=== PATIENT | male | born 1995 | race Caucasian/White ===

== ENCOUNTER 2024-05-27 15:48 | Emergency (ER) | payer SELFPAY ==
[~2024-05-27] VITALS: Ht 180.3 cm; Wt 63.5 kg
[~2024-05-27 15:48] MED LIST: ARIP5TAB12 PO; DIPH25CA83 PO; LORA1TAB PO; OMEP40CA21 PO; POLY17PO10 PO; TRIA16.5 NS
[2024-05-27 16:00] VITALS: BP 142/80; PULSE 109; RESP 18; O2SAT 95
[2024-05-27 16:21] VITALS: TEMP 98.1
== END 2024-05-27 16:22 | disposition home or self-care (01) ==
LOC: ER 15:49
DX: Z00.8 Encounter for other general examination (principal); R42 Dizziness and giddiness; F41.9 Anxiety disorder, unspecified
CPT/HCPCS: 99281

== ENCOUNTER 2024-08-15 09:36 | Emergency (ER) | payer MEDICAID ==
[~2024-08-15] VITALS: Ht 180.3 cm; Wt 62.8 kg
[2024-08-15 09:50] VITALS: BP 125/76; PULSE 67; RESP 18; O2SAT 98
[2024-08-15] MEDS ORDERED: MUPI22OI30 TOP (10:48)
[2024-08-15] MEDS ORDERED: CEPH-585 PO (10:48)
--- NOTE | 2024-08-15 10:48 | Physician Documentation ---
History of Present Illness ~ Chief Complaint: Abscess Stated Complaint: INGROWN HAIR Time Seen by MD: 10:21 Primary Medical Doctor: yulisa GALLEGOS 29-year-old male presents to the ED with a complaint of one month of having abscess on the right side of his penis. States that he has had this before in his armpit. He had tried to squeeze the area and caused increased pain and swelling. Denies having any drainage denies fevers or nausea vomiting. Day of Onset: Aug 15, 2024 Tetanus Within 5 Years: No Medication Reconciliation Allergies: Coded Allergies: No Known Allergies (Unverified , 08/15/24) Scheduled Aripiprazole* (Abilify*), 1 TAB PO DAILY, (Reported) Cephalexin*Monohydrate* (Keflex*), 1 CAP PO QID Diphenhydramine Hcl (Benadryl), 1 CAP PO Q8H Mupirocin* (Bactroban*), 1 APPLIC TOP Q8H Omeprazole (Prilosec), 40 MG PO DAILY Triamcinolone Acetonide (Nasacort Aq), 16.5 GM NS BID Scheduled PRN Aripiprazole* (Abilify*), 1 TAB PO Q6H PRN for for anxiety/agitation, (Reported) Lorazepam* (Ativan*), 2 MG PO Q6H PRN for anxiety/agitation, (Reported) Polyethylene Glycol 3350* (Miralax*), 1 PKT PO BID PRN for constipation Past Medical History Past Medical History: Anxiety Past Surgical History: no surgical history Alcohol Use: None Drug Use: none Lives with: Other Lives In: Other Occupation: unemployed Review of Systems All Other Systems at this time: Reviewed and Negative ROS As stated above in the HPI, otherwise all systems are reviewed and negative. Physical Exam Vital Signs: Temperature: 97.9, Source: Temporal, Heart Rate: 67, Respiratory Rate: 18, BP: 125/76, Pulse Oximetry: 98, Weight: 62.750 Physical Exam General: Alert, no apparent distress. Genitourinary:2cm raised area with surrounding erythem right penile shaft Neurologic: Oriented x4. Psychiatric: Normal mood and affect. Skin: Normal color, warm and dry. No edema, no ecchymosis. Progress Results/Orders Results/Orders Vital Signs 08/15/24 08/15/24 09:50 10:52 Temp 97.9 97.9 Pulse 67 Resp 18 B/P (MAP) 125/76 Pulse Ox 98 Medical Decision Making Findings Patient presents with a suspected small abscess on the right lateral aspect of the penis treat him with both topical and systemic antibiotic cover MRSA Differential Dx:Considerations: Include: Abscess, Bacteremia, Cellulitis, Erysipelas, Felon, Gas gangrene, Hidrademitis suppurativa, Impetigo, Lymphangitis, Osteromyelitis, Paronychia, Septicemia, Other Departure Disposition: HOME / SELF CARE / HOMELESS Impression: Primary Impression: Abscess Condition: Stable Discharge Instructions: Skin Abscess, [id number], Cellulitis, Adult, [id number] Referrals: NO PRIMARY CARE PROVIDER (PCP) Prescriptions Cephalexin*Monohydrate* (Keflex*) 500 Mg Capsule 1 CAP PO QID, #40 CAP Prov: JAI PAINTING NP 08/15/24 Mupirocin* (Bactroban*) 22 Gm Tube 1 APPLIC TOP Q8H for 5 Days, #15 GM apply to affected area(s) Prov: JAI PAINTING NP 08/15/24 Education Educated: Patient Educated regarding: diagnosis Signature Scribe Signature: g Attestation: The note accurately reflects work and decisions made by me.Jai Mojica NP 08/15/24 18:52 JAI PAINTING NP Aug 15, 2024 10:48
[2024-08-15 10:52] VITALS: TEMP 97.9
== END 2024-08-15 10:54 | disposition home or self-care (01) ==
LOC: ER 09:36
DX: N48.21 Abscess of corpus cavernosum and penis (principal); F41.9 Anxiety disorder, unspecified; Z79.899 Other long term (current) drug therapy; Z56.0 Unemployment, unspecified
CPT/HCPCS: 99283

== ENCOUNTER 2024-11-17 04:38 | Emergency (ER) | payer MEDICAID ==
[~2024-11-17] VITALS: Ht 175.3 cm; Wt 68.2 kg
[~2024-11-17 04:38] MED LIST changes: +CEPH-585 PO
[2024-11-17 04:55] VITALS: TEMP 97.9
[2024-11-17] MEDS ORDERED: ONDA-245 PO (05:11)
--- NOTE | 2024-11-17 05:12 | Physician Documentation ---
History of Present Illness ~ Chief Complaint: ETOH Stated Complaint: VOMITING Time Seen by MD: 05:04 Primary Medical Doctor: yulisa GALLEGOS Patient presents to the emergency room with vomiting. He got yesterday and endorses significant alcohol ingestion. He has been vomiting for 2 hours therefore his spouse called for an ambulance. He does state that he likely drank too much Tetanus within 5 years?: No Medication Reconciliation Allergies: Coded Allergies: No Known Allergies (Unverified , 08/15/24) Scheduled Aripiprazole* (Abilify*), 1 TAB PO DAILY, (Reported) Cephalexin*Monohydrate* (Keflex*), 1 CAP PO QID Diphenhydramine Hcl (Benadryl), 1 CAP PO Q8H Omeprazole (Prilosec), 40 MG PO DAILY Ondansetron 8mg ODT (Ondansetron Odt), 1 TAB PO Q6H Triamcinolone Acetonide (Nasacort Aq), 16.5 GM NS BID Scheduled PRN Aripiprazole* (Abilify*), 1 TAB PO Q6H PRN for for anxiety/agitation, (Reported) Lorazepam* (Ativan*), 2 MG PO Q6H PRN for anxiety/agitation, (Reported) Polyethylene Glycol 3350* (Miralax*), 1 PKT PO BID PRN for constipation Past Medical History Past Medical History: Anxiety Past Surgical History: no surgical history Alcohol Use: None Drug Use: none Lives with: Other Lives In: Other Occupation: unemployed Review of Systems ROS All review of systems negative except as per HPI Physical Exam Vital Signs: Temperature: 97.9, Source: Temporal, Heart Rate: 77, Respiratory Rate: 14, BP: 123/87, Pulse Oximetry: 97, Weight: 68.180 Oxygen Flow Rate: 0 Physical Exam General: Patient is sleeping, arousable, cooperative Head: Normocephalic and atraumatic. Eyes: Conjunctival normal. EOMI. PERRL. ENT: Mucous membranes moist. Neck: Supple, trachea is midline. Chest: Clear to auscultation bilaterally without rales, rhonchi, or wheezes. There is no accessory muscle use or retractions. Cardiac: RRR without murmurs, gallops, or rubs. Abd: Soft, nondistended, nontender, with normoactive bowel sounds. No guarding, rebound, or rigidity. Progress Results/Orders Results/Orders Completed Orders - JOHN STANLEY MD Ondansetron Inj. (Zofran 4mg/2ml Vial) (11/17/24 05:10) Vital Signs 11/17/24 11/17/24 11/17/24 11/17/24 04:55 05:30 06:18 07:28 Temp 97.9 Pulse 77 58 Resp 14 16 16 16 B/P (MAP) 123/87 105/74 (84) Pulse Ox 97 98 O2 Flow Rate 0 0 Medical Decision Making Findings Patient presents to the emergency room vomiting after having drank excessively. Differentials include but are not limited to alcoholic gastritis, alcohol poisoning, electrolyte disturbances, dehydration. Given onset of symptoms and admitted history of significant alcohol ingestion he had not feel emergent labs are necessary. Zofran administered. Patient to be monitored until clinically sober by oncoming physician. Departure Disposition: HOME / SELF CARE / HOMELESS Impression: Primary Impression: Alcoholic gastritis Condition: Improved Discharge Instructions: Alcohol Intoxication Referrals: NO PRIMARY CARE PROVIDER (PCP) Prescriptions Ondansetron 8mg ODT (Ondansetron Odt) 8 Mg Tab.rapdis 1 TAB PO Q6H for nausea/vomiting for 3 Days, #12 TAB 0 Refills Prov: JOHN STANLEY MD 11/17/24 Signature Scribe Signature: No scribe Attestation: The note accurately reflects work and decisions made by me.John Stanley MD 11/17/24 05:12 JOHN STANLEY MD Nov 17, 2024 05:12
[2024-11-17] MEDS: ondansetron/PF 4mg/2ml inj IM ONE (05:28)
[2024-11-17 05:30] VITALS: BP 105/74; PULSE 58; O2SAT 98
[2024-11-17 07:28] VITALS: RESP 16
== END 2024-11-17 07:30 | disposition home or self-care (01) ==
LOC: ER 04:40
DX: K29.20 Alcoholic gastritis without bleeding (principal)
CPT/HCPCS: 96372; 99283; J2405